=== PATIENT | male | born 1970 | race Hispanic/Latino ===

== ENCOUNTER 2018-03-05 19:22 | Emergency (ER) | payer OTHER ==
[2018-03-05] MEDS ORDERED: IBUPROFEN 600 MG TABLET ONE (19:57)
== END 2018-03-05 20:58 | disposition home or self-care (01) ==
LOC: EDH 19:22
DX: S83.8X2A Sprain of other specified parts of left knee, initial encounter (principal); Z88.5 Allergy status to narcotic agent; Z72.0 Tobacco use; W22.8XXA Striking against or struck by other objects, initial encounter; Y93.89 Activity, other specified; Y92.098 Other place in other non-institutional residence as the place of occurrence of the external cause; Y99.8 Other external cause status
CPT/HCPCS: 73562

== ENCOUNTER 2019-04-24 01:19 | Emergency (ER) | payer OTHER ==
[2019-04-24] MEDS ORDERED: CEFTRIAXONE SODIUM 1 GM ONE (01:50)
[2019-04-24] MEDS ORDERED: LIDOCAINE HCL-MPF 1% 2ML VIAL ONE ×2 (01:50→01:52)
== END 2019-04-24 02:13 | disposition home or self-care (01) ==
LOC: EDH 01:19
DX: L03.115 Cellulitis of right lower limb (principal); Z72.0 Tobacco use; Z88.8 Allergy status to other drugs, medicaments and biological substances
CPT/HCPCS: 96372; 99283; J0696; J3490 ×2

== ENCOUNTER 2019-06-11 19:10 | Emergency (ER) | payer OTHER ==
[2019-06-11 19:51] LABS: APPEARANCE,URINE Clear (CLEAR); BILIRUBIN,URINE Negative (NEGATIVE); COLOR,URINE Yellow (YELLOW); GLUCOSE, URINE (UA) >=1000 mg/dL (NEGATIVE); KETONES,URINE Negative (NEGATIVE); LEUKOCYTE ESTERASE ,URINE Negative (NEGATIVE); NITRATE,URINE Negative (NEGATIVE); OCCULT BLOOD,URINE Negative (NEGATIVE); PROTEIN,URINE Negative (NEGATIVE)
[2019-06-11 20:26] LABS: BASOPHILS % (AUTO) 0.8 % (0.0-5.0); EOSINOPHILS % (AUTO) 4.5 % (0.0-8.0); HEMATOCRIT 45.2 % (42-54); LYMPHOCYTES % (AUTO) 37.8 % (21.0-51.0); MEAN CORPUSCULAR HEMOGLOBIN 33.8 pg (27.0-33.0); MEAN CORPUSCULAR HGB CONC 34.7 g/dL (32.0-36.0); MEAN CORPUSCULAR VOLUME 97.2 fL (79-99); MONOCYTES % (AUTO) 7.9 % (3.0-13.0); NUCLEATED RED BLOOD CELLS 0.1 % (0.0-0.19); PLATELET COUNT (AUTO) 187 K/uL (130-400); RED BLOOD CELL COUNT(AUTO) 4.65 MIL/uL (4.50-6.20); RED CELL DISTRIBUTION WIDTH 13.6 % (11.0-15.5)
[2019-06-11 20:43] LABS: POTASSIUM 3.4 mmol/L (3.5-5.1)
[2019-06-11 20:47] LABS: LIPASE 98 U/L (114-286)
[2019-06-11 20:48] LABS: ALBUMIN 3.8 g/dL (3.5-5.0); BILIRUBIN,TOTAL 0.6 mg/dL (0.2-1.0); TOTAL PROTEIN, SERUM 7.7 g/dL (6.0-8.3)
[2019-06-11] MEDS ORDERED: INSULIN HUMULIN R 100 UNIT/ML 3ML ONE (21:04)
== END 2019-06-11 22:33 | disposition home or self-care (01) ==
LOC: EDH 19:10
DX: B37.42 Candidal balanitis (principal); E11.9 Type 2 diabetes mellitus without complications; Z72.0 Tobacco use; Z88.8 Allergy status to other drugs, medicaments and biological substances
CPT/HCPCS: 36415; 80053; 81003; 82010; 82948 ×2; 83690; 85025; 87486; 87797; 96374; 99284; J1815

== ENCOUNTER 2019-07-09 18:29 | Emergency (ER) | payer OTHER ==
[2019-07-09] MEDS ORDERED: CEFTRIAXONE SODIUM 1 GM ONE (19:46)
[2019-07-09] MEDS ORDERED: SULFAMETHOX-TMP DS 800/160 TAB ONE (19:46)
[2019-07-09] MEDS ORDERED: LIDOCAINE HCL-MPF 1% 2ML VIAL ONE (19:46)
== END 2019-07-09 20:19 | disposition home or self-care (01) ==
LOC: EDH 18:29
DX: L03.031 Cellulitis of right toe (principal); E11.9 Type 2 diabetes mellitus without complications; Z88.5 Allergy status to narcotic agent
CPT/HCPCS: 96372; 99283; J0696; J3490

== ENCOUNTER 2022-02-23 18:29 | Emergency (ER) | payer OTHER ==
[~2022-02-23] VITALS: Ht 180.3 cm; Wt 113.4 kg
[2022-02-23] MEDS ORDERED: NAPR500T6 PO (20:34)
[2022-02-23] MEDS ORDERED: AMOX1TAB16 PO (20:34)
[2022-02-23] MEDS ORDERED: AMOX/CLAV 875/125MG TAB PO ONE (21:00)
[2022-02-23] MEDS ORDERED: TETANUS/DIPHTHERIA TOXOID [ADULT] 0.5 ML VIAL IM ONE ×2 (21:30→21:32)
[2022-02-23 21:38] VITALS: BP 127/70
== END 2022-02-23 21:45 | disposition home or self-care (01) ==
LOC: EDH 18:29
DX: S69.92XA Unspecified injury of left wrist, hand and finger(s), initial encounter (principal); L02.512 Cutaneous abscess of left hand; E11.9 Type 2 diabetes mellitus without complications; Z88.6 Allergy status to analgesic agent; Z79.899 Other long term (current) drug therapy; W22.8XXA Striking against or struck by other objects, initial encounter; Y93.89 Activity, other specified; Y92.096 Garden or yard of other non-institutional residence as the place of occurrence of the external cause; Y99.8 Other external cause status
CPT/HCPCS: 10060; 73130; 87070; 87077; 87186; 90471; 90714

== ENCOUNTER 2023-08-07 18:07 | Emergency (ER) | payer OTHER ==
[~2023-08-07] VITALS: Ht 180.3 cm; Wt 117.9 kg
[~2023-08-07 18:07] MED LIST: AMOX1TAB16 PO; NAPR500T6 PO
[2023-08-07 18:15] VITALS: BP 158/97; PULSE 77; RESP 20
[2023-08-07 19:42] LABS: ADD UA MICROSCOPIC YES; APPEARANCE,URINE CLEAR (CLEAR); BILIRUBIN,URINE NEGATIVE (NEGATIVE); COLOR,URINE COLORLESS (YELLOW); GLUCOSE, URINE (UA) >=1000 mg/dL (NEGATIVE); KETONES,URINE NEGATIVE (NEGATIVE); LEUKOCYTE ESTERASE ,URINE NEGATIVE Leu/uL (NEGATIVE); NITRATE,URINE NEGATIVE (NEGATIVE); OCCULT BLOOD,URINE NEGATIVE (NEGATIVE); PH,URINE 5.5 (5.0-8.0); PROTEIN,URINE NEGATIVE (NEGATIVE); UROBILINOGEN,URINE 0.2 mg/dL (0.2-1.0)
[2023-08-07 19:45] LABS: WBC,URINE 0-1 /HPF (0-1)
[2023-08-07 19:54] LABS: BASOPHILS # (AUTO) 0.02 K/uL (0.00-0.20); BASOPHILS % (AUTO) 0.4 % (0.0-5.0); EOSINOPHILS # (AUTO) 0.19 K/uL (0.00-0.70); EOSINOPHILS % (AUTO) 3.8 % (0.0-8.0); HEMATOCRIT 41.3 % (42-54); IMMATURE GRANULOCYTE ABSOLUTE 0.01 K/uL (0-1); LYMPHOCYTES # (AUTO) 1.7 K/uL (1.0-4.8); LYMPHOCYTES % (AUTO) 33.8 % (21.0-51.0); MEAN CORPUSCULAR HEMOGLOBIN 33.4 pg (27.0-33.0); MEAN CORPUSCULAR HGB CONC 35.6 g/dL (32.0-36.0); MEAN CORPUSCULAR VOLUME 93.9 fL (79-99); MONOCYTES # (AUTO) 0.3 K/uL (0.1-1.0); MONOCYTES % (AUTO) 6.6 % (3.0-13.0); NEUTROPHILS # (AUTO) 2.8 K/uL (1.8-7.7); NEUTROPHILS % (AUTO) 55.2 % (40.0-77.0); PLATELET COUNT (AUTO) 214 K/uL (130-400); RED CELL DISTRIBUTION WIDTH 12.1 % (11.0-15.5)
[2023-08-07] MEDS ORDERED: TAMSULOSIN HCL 0.4 MG CAP.ER.24H ONE (20:01)
[2023-08-07] MEDS ORDERED: IBUPROFEN 400 MG TABLET ONE (20:02)
[2023-08-07 20:05] LABS: CREATININE 1.1 mg/dL (0.5-1.5); POTASSIUM 3.7 mmol/L (3.5-5.1)
[2023-08-07 20:09] LABS: ALBUMIN 3.2 g/dL (3.5-5.0); BILIRUBIN,TOTAL 0.2 mg/dL (0.2-1.0); TOTAL PROTEIN, SERUM 7.1 g/dL (6.0-8.3)
[2023-08-07] MEDS ORDERED: 0.9%NACL 1000ML 1,000 ML IV ONE (20:30)
[2023-08-07] MEDS ORDERED: INSULIN HUMULIN R 100 UNIT/ML 3ML IV ONE (20:30)
[2023-08-07] MEDS ORDERED: METF-526 PO (22:18)
== END 2023-08-07 22:26 | disposition home or self-care (01) ==
LOC: EDH 18:07
DX: E11.9 Type 2 diabetes mellitus without complications (principal); Z79.899 Other long term (current) drug therapy; Z88.8 Allergy status to other drugs, medicaments and biological substances
CPT/HCPCS: 99283; 96374; 80053; 83690; 85025; 82948 ×2; 81001; 36415; J1815; J7030

== ENCOUNTER 2023-12-28 02:18 | Emergency (ER) | payer BC, OTHER ==
[~2023-12-28] VITALS: Ht 180.3 cm; Wt 110.7 kg
[~2023-12-28 02:18] MED LIST changes: +METF-526 PO
[2023-12-28 02:44] LABS: RAPID GROUP A STREP negative (NEGATIVE)
[2023-12-28 02:56] LABS: COVID19 (SARS ANTIGEN RAPID) PRESUMPTIVE NEGATIVE (NEGATIVE); INFLUENZA TYPE A Negative For Type A (NEGATIVE); INFLUENZA TYPE B Negative For Type B (NEGATIVE)
[2023-12-28] MEDS: KETOROLAC 60 MG VIAL (30MG/ML) IM ONE (03:10)
[2023-12-28] MEDS: SOLU-MEDROL 125MG VIAL IM ONE (03:10)
[2023-12-28] MEDS: ALBUTEROL 0.083% 2.5 MG/3 ML INH IH ONE (03:11)
[2023-12-28 03:13] VITALS: PULSE 87; RESP 19
[2023-12-28] MEDS: BUDESONIDE 0.5 MG/2 ML INH IH ONE (03:34)
[2023-12-28] MEDS ORDERED: AUD IH (03:47)
[2023-12-28] MEDS ORDERED: CETI10CA5 PO (03:47)
[2023-12-28 03:55] VITALS: BP 137/83; PULSE 82; RESP 19; O2SAT 97
[2023-12-28] MEDS ORDERED: BUDESONIDE 0.5 MG/2 ML INH IH SCH (06:00)
== END 2023-12-28 03:55 | disposition home or self-care (01) ==
LOC: EDH 02:18
DX: J45.909 Unspecified asthma, uncomplicated (principal); E11.9 Type 2 diabetes mellitus without complications; Z79.51 Long term (current) use of inhaled steroids; Z79.84 Long term (current) use of oral hypoglycemic drugs; Z88.5 Allergy status to narcotic agent; Z20.822 Contact with and (suspected) exposure to COVID-19
CPT/HCPCS: 99284; 71045; 87426; 87880; 87804 ×2; 96372 ×2; 94640; J2930; J1885